=== PATIENT | female | born 1930 | race Caucasian/White ===

== ENCOUNTER 2021-09-17 12:39 | Emergency (ER) | payer MEDICARE ==
[2021-09-17] MEDS ORDERED: Acetaminophen/HYDROcodone 325-5 MG Tab PO ONE (13:44)
--- NOTE | 2021-09-17 13:50 | EDM.PDOC ---
ED HPI GENERAL MEDICAL PROBLEM - General Chief Complaint: General Stated Complaint: FALL Time Seen by Provider: 09/17/21 13:35 Source of Information: Reports: Patient, Family, Old Records, RN History Limitations: Reports: No Limitations - History of Present Illness INITIAL COMMENTS - FREE TEXT/NARRATIVE: 89 yo female [facility] patient with some dementia presents with R rib pain from a fall yesterday. She does not remember falling. No SOB. Had acetaminophen without adequate relief at 0830h today last. No other areas of pain reported. 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 - Related Data Allergies Allergy/AdvReac Type Severity Reaction Status Date / Time Penicillins Allergy Mild Other Verified 09/17/21 13:41 [id number] Reductase Allergy Unknown Other Verified 09/17/21 13:42 Inhibitor Home Meds: Home Meds Aspirin 81 mg PO DAILY 09/17/21 [History] Clopidogrel [Plavix] 75 mg PO ASDIRECTED 09/17/21 [History] Magnesium Oxide 500 mg PO DAILY 09/17/21 [History] Sennosides [Senna Lax] 8.6 mg PO DAILY PRN 09/17/21 [History] amLODIPine Besylate [Amlodipine Besylate] 5 mg PO DAILY 09/17/21 [History] ED ROS GENERAL - Review of Systems Review Of Systems: See Below Constitutional: Reports: No Symptoms HEENT: Reports: No Symptoms Respiratory: Reports: Pleuritic Chest Pain Cardiovascular: Reports: Chest Pain (R lateral chest) GI/Abdominal: Reports: No Symptoms Musculoskeletal: Reports: No Symptoms Skin: Reports: No Symptoms Neurological: Reports: Other (has mild dementia) ED EXAM, GENERAL - Physical Exam Exam: See Below Exam Limited By: No Limitations General Appearance: Alert, WD/WN, No Apparent Distress Eye Exam: Bilateral Eye: Normal Inspection Ears: Normal External Exam, Normal Canal, Hearing Grossly Normal Ear Exam: Bilateral Ear: Auricle Normal, Canal Normal Nose: Normal Inspection, No Blood Throat/Mouth: Normal Inspection, Normal Lips, Normal Oropharynx, Normal Voice, No Airway Compromise Head: Atraumatic, Normocephalic Neck: Normal Inspection Respiratory/Chest: No Respiratory Distress, Lungs Clear, Normal Breath Sounds. No: Chest Non-Tender (rib pain on R side of chest without crepitus) Cardiovascular: Regular Rate, Rhythm, No Edema GI/Abdominal: Soft, Non-Tender Extremities: Normal Inspection, Normal Range of Motion, Non-Tender, No Pedal Edema Neurological: Alert, Oriented, CN II-XII Intact, Normal Cognition, No Motor/Sensory Deficits Psychiatric: Normal Affect, Normal Mood Skin Exam: Warm, Dry, Intact, Normal Color, No Rash Course - Vital Signs Last Recorded V/S: Last Vital Signs Temp 36.5 C 09/17/21 13:51 Pulse 67 09/17/21 14:06 Resp 16 09/17/21 13:51 BP 150/75 H 09/17/21 14:06 Pulse Ox 92 L 09/17/21 14:06 - Orders/Labs/Meds Orders: Active Orders 24 hr Category Date Time Status Ribs 3V wo Chest Rt [CR] Stat Exams 09/17/21 13:45 Taken Labs: Laboratory Tests 09/17/21 Range/Units 13:31 Urine Color Yellow (YELLOW) Urine Appearance Slightly cloudy A (CLEAR) Urine pH 7.5 (5.0-8.0) Ur Specific [place] 1.020 (1.008-1.030) Urine Protein Negative (NEGATIVE) mg/dL Urine Glucose (UA) Negative (NEGATIVE) mg/dL Urine Ketones Negative (NEGATIVE) mg/dL Urine Occult Blood Trace-intact H (NEGATIVE) Urine Nitrite Negative (NEGATIVE) Urine Bilirubin Negative (NEGATIVE) Urine Urobilinogen 0.2 (0.2-1.0) EU/dL Ur Leukocyte Esterase Negative (NEGATIVE) Urine RBC 0-5 (0-5) Urine WBC 0-5 (0-5) Ur Epithelial Cells Few Amorphous Sediment Not seen Urine Bacteria Not seen Urine Mucus Few Meds: Medications Discontinued Medications Generic Name Dose Route Start Last Admin Trade Name Freq PRN Reason Stop Dose Admin Hydrocodone Bitart/Acetaminophen 1 tab 09/17/21 13:44 09/17/21 14:05 Acetaminophen/Hydrocodone 325-5 Mg Tab PO 09/17/21 13:45 1 tab ONETIME ONE Administration - Radiology Interpretation Free Text/Narrative:: CXR- a conclusive fx was not seen. Departure - Departure Time of Disposition: 14:45 Disposition: Home, Self-Care 01 Condition: Fair Clinical Impression: Rib pain on right side - Discharge Information *PRESCRIPTION DRUG MONITORING PROGRAM REVIEWED*: No *COPY OF PRESCRIPTION DRUG MONITORING REPORT IN PATIENT DIANNE: No Instructions: Chest Wall Pain, [id number] Referrals: Geremias Roberto MD [Primary Care Provider] - Forms: ED Department Discharge Additional Instructions: Give [place] 1 every 4-6 hrs as needed for pain relief. Our radiologist will be looking at your X-ray on Sunday and we will call you at that time. Recheck next week with your doctor to adjust your pain medicine. Get ample fluids and fiber to prevent constipation from your pain pill. Sepsis Event Note (ED) - Focused Exam Vital Signs: Vital Signs Temp Pulse Resp BP Pulse Ox 09/17/21 14:06 67 150/75 H 92 L 09/17/21 13:51 36.5 C 75 16 152/94 H 94 L 09/17/21 13:01 36.5 C 75 16 152/94 H 94 L - My Orders Last 24 Hours: My Active Orders 09/17/21 13:45 Ribs 3V wo Chest Rt [CR] Stat - Assessment/Plan Last 24 Hours: My Active Orders 09/17/21 13:45 Ribs 3V wo Chest Rt [CR] Stat
--- NOTE | 2021-09-17 15:03 | CRLCR ---
For Patients: As a result of the Cures Act, medical imaging exams and procedure reports are released immediately into your electronic medical record. You may view this report before your referring provider. If you have questions, please contact your health care provider. HISTORY: Fall, rib pain. TECHNIQUE: Three views of right-sided ribs. COMPARISON: No prior. FINDINGS: No acute right-sided rib fractures seen. No right lung infiltrate, pneumothorax or pleural effusion. Degenerative changes of the right shoulder. Degenerative changes of the spine. IMPRESSION: No acute right-sided rib fractures seen. Dictated by Vitaliy Lund MD @ 09/17/2021 3:02:21 PM Dictated by: Vitaliy Lund MD @ 09/17/2021 15:02:26 (Electronically Signed)
== END 2021-09-17 15:15 | disposition home or self-care (01) ==
LOC: JP.ED 12:39
DX: R07.81 Pleurodynia (principal); F03.90 Unspecified dementia, unspecified severity, without behavioral disturbance, psychotic disturbance, mood disturbance, and anxiety; Z88.0 Allergy status to penicillin; Z88.8 Allergy status to other drugs, medicaments and biological substances; Z79.82 Long term (current) use of aspirin; Z79.899 Other long term (current) drug therapy; W19.XXXA Unspecified fall, initial encounter; Y92.009 Unspecified place in unspecified non-institutional (private) residence as the place of occurrence of the external cause
CPT/HCPCS: 71101; 81001; 99283; A9270